=== PATIENT | female | born 1955 | race Caucasian/White ===

== ENCOUNTER → 2018-05-03 | Outpatient (CLI) | payer MEDICARE, OTHER ==
[~2018-05-03] MED LIST: AMIODARONE HCL200 MG PO; ASPIR 8181 MG; CALCIUM 500+VI1 EACH PO; HYDROCODON-ACE1 EA16 PO; LOSARTAN POTASS25 MG PO; LOSARTAN-HCTZ1 EAC1 PO; LYRICA100 MG PO; MOBIC7.5 MG/5 M PO; MULTI-VITAMIN1 EACH PO; ORENCIA125 MG/1 M; VIT D3 PO; XOPENEX1.25 MG/3; ZEGERID 20 MG1 EACH PO
--- NOTE | 2018-05-03 08:25 | Diagnostic Imaging Report ---
PROCEDURE:US LIVER COMPARISON:None. INDICATIONS:Elevated Liver Enzymes TECHNIQUE: Whipple-scale and color Doppler transverse and longitudinal images of the right upper quadrant of the abdomen were obtained. FINDINGS: Liver: Measures 15.8 cm in the right mid-clavicular line. Increased echogenicity. No masses. Main portal vein: Measures 1.1 cm with normal forward flow. Gallbladder: Has been removed. Common Bile Duct: Measures 0.5 cm Sonographic Gaytan's sign: Negative Right kidney: Measures 11.1 x 4.1 x 4.0 cm. Normal echogenicity. No solid masses or hydronephrosis. Pancreas: Pancreatic tail is obscured. Inferior vena cava: Patent Aorta: Poorly visualized Ascites: None in the right upper quadrant of the abdomen. CONCLUSION: Fatty infiltration of the liver without evidence of a mass. Júnior Mcghee D.O. Dictated by: Júnior Mcghee D.O. on 05/03/2018 at 8:30 Electronically approved by: Júnior Mcghee D.O. on 05/03/2018 at 8:30
== END ==
LOC: US 07:32
PROVIDERS: ATTEND Internal Medicine Gastroenterology
DX: R74.8 Abnormal levels of other serum enzymes (principal)
CPT/HCPCS: 76705

== ENCOUNTER → 2019-09-06 | Outpatient (CLI) | payer MEDICARE, OTHER ==
--- NOTE | 2019-09-06 13:46 | Diagnostic Imaging Report ---
EXAM: CT Abdomen and Pelvis WITHOUT intravenous contrast INDICATION: Abdominal pain, diverticulitis COMPARISON: None. TECHNIQUE: Abdomen and pelvis were scanned utilizing a multidetector helical scanner from the lung base to the pubic symphysis without administration of IV contrast. Coronal and sagittal reformations were obtained. IV CONTRAST: None ORAL CONTRAST: Gastrografin COMPLICATIONS: None RADIATION DOSE: Total DLP: 861.7 mGy*cm Dose modulation, iterative reconstruction, and/or weight based adjustment of the mA/kV was utilized to reduce the radiation dose to as low as reasonably achievable. FINDINGS: LOWER THORAX: Normal. HEPATOBILIARY: Nodular liver surface contour compatible with cirrhosis. No focal liver lesion. Status post cholecystectomy. SPLEEN: No splenomegaly. PANCREAS: Diffuse fatty atrophy. No focal mass or ductal dilation. ADRENALS: No adrenal nodules. KIDNEYS/URETERS: No hydronephrosis, stones, or solid mass lesions. Mild bilateral perinephric fat stranding. PELVIC ORGANS/BLADDER: Unremarkable. PERITONEUM / RETROPERITONEUM: No free air or fluid. LYMPH NODES: No lymphadenopathy. VESSELS: Scattered atherosclerotic calcifications of the nonaneurysmal abdominal aorta and major branches. GI TRACT: Prominent sigmoid diverticulosis. No CT evidence of diverticulitis. No abnormal bowel thickening. No bowel obstruction. Normal appendix. BONES AND SOFT TISSUES: No acute osseous injury. Status post posterior decompression and fusion at L4-S1. Grade 1 anterolisthesis at L3-4. Multilevel degenerative changes of the visualized spine. No suspicious lytic or blastic lesions. IMPRESSION: Prominent sigmoid diverticulosis without CT evidence of diverticulitis. Liver cirrhosis. Signed by: Schuyler Jaimes MD on 09/06/2019 1:42 PM
== END ==
LOC: CT 11:22
PROVIDERS: ATTEND Internal Medicine Gastroenterology
DX: R19.7 Diarrhea, unspecified (principal); R10.30 Lower abdominal pain, unspecified
CPT/HCPCS: 74176

== ENCOUNTER → 2025-07-24 | Day surgery (SDC) | payer MEDICARE ==
[2025-07-18 10:50] LABS: BASOPHILS % 0.7 % (0.0-1.0); EOSINOPHILS % 0.0 % (0.0-6.0); LYMPHOCYTES % 30.1 % (18.0-39.1); MONOCYTES % 8.6 % (4.4-11.3); NEUTROPHILS % 60.3 % (38.7-80.0); RED CELL DISTRIBUTION WIDTH 14.3 % (11.7-14.4)
[~2025-07-24] MED LIST changes: +ASPIRIN81 MG PO; +COLACE100 MG/10 PO; +ELIQUIS5 MG PO; +FLONASE; +GLIMEPIRIDE2 MG PO; +GLYCOPYRROLATE INJ 0.2 MG/ML VIAL ONE; +LACTATED RINGER'S 1,000 ML ONE; +LIDOCAINE HCL 2% LOCAL INJ 5 ML SDV VIAL INJ ONE; +LOSARTAN POTASS50 MG PO; +METFORMIN HCL500 MG PO; +MONTELUKAST SOD10 MG PO; +MUCINEX DM ER1 EAC1 PO; +MULTIVITAMIN1 EACH PO; +PANTOPRAZOLE SO40 MG PO; +PROPOFOL IV EMULSION 10 MG/ML 20 ML VIAL ONE; +VENTOLIN HFA18 GM INH
[2025-07-24 07:43] VITALS: TEMP 98.4
[2025-07-24 08:15] VITALS: BP 127/68; PULSE 80; RESP 16; O2SAT 99
== END | disposition home or self-care (01) ==
LOC: ENDO 05:16
PROVIDERS: ATTEND Internal Medicine Gastroenterology
DX: K22.2 Esophageal obstruction (principal); K29.50 Unspecified chronic gastritis without bleeding; Z86.0100 Personal history of colon polyps, unspecified; R63.4 Abnormal weight loss; Z01.812 Encounter for preprocedural laboratory examination; I10 Essential (primary) hypertension; I48.91 Unspecified atrial fibrillation; E11.9 Type 2 diabetes mellitus without complications; Z85.118 Personal history of other malignant neoplasm of bronchus and lung; Z79.01 Long term (current) use of anticoagulants
CPT/HCPCS: 36415; 43239; 43450; 85025; 88305; J2003; J2470

== ENCOUNTER → 2025-08-14 | Day surgery (SDC) | payer MEDICARE ==
[~2025-08-14] MED LIST changes: +AMOXICILLI400 MG/5 M PO; -GLYCOPYRROLATE INJ 0.2 MG/ML VIAL ONE; +KETAMINE 50MG/5ML SYR ONE; +METOCLOPRAMIDE HCL 10 MG/2ML VIAL ONE
[2025-08-14 07:34] VITALS: TEMP 97.1
[2025-08-14 08:05] VITALS: BP 111/66; PULSE 61; RESP 16; O2SAT 99
== END | disposition home or self-care (01) ==
LOC: ENDO 05:26
PROVIDERS: ATTEND Internal Medicine Gastroenterology
DX: K22.2 Esophageal obstruction (principal); K22.3 Perforation of esophagus; K44.9 Diaphragmatic hernia without obstruction or gangrene; Z87.19 Personal history of other diseases of the digestive system; I10 Essential (primary) hypertension; E11.9 Type 2 diabetes mellitus without complications; I48.91 Unspecified atrial fibrillation; M06.9 Rheumatoid arthritis, unspecified; K76.0 Fatty (change of) liver, not elsewhere classified; Z85.118 Personal history of other malignant neoplasm of bronchus and lung; Z87.891 Personal history of nicotine dependence; Z90.49 Acquired absence of other specified parts of digestive tract; Z90.2 Acquired absence of lung [part of]; Z88.5 Allergy status to narcotic agent; Z88.2 Allergy status to sulfonamides; Z88.8 Allergy status to other drugs, medicaments and biological substances; Z91.048 Other nonmedicinal substance allergy status; Z79.2 Long term (current) use of antibiotics; Z79.01 Long term (current) use of anticoagulants
CPT/HCPCS: 43235; J2003; J2470; J2704; J2765; J7121